=== PATIENT | female | born 1980 | race Caucasian/White ===

== ENCOUNTER 2019-07-09 12:55 | Emergency (ER) | payer MEDICAID ==
[~2019-07-09] VITALS: Ht 162.6 cm; Wt 84.4 kg
[2019-07-09 13:55] VITALS: BP 121/72
== END 2019-07-09 21:26 | disposition left against medical advice (07) ==
LOC: ER 12:55
DX: R11.2 Nausea with vomiting, unspecified (principal); R51 Headache; M79.89 Other specified soft tissue disorders; Z53.21 Procedure and treatment not carried out due to patient leaving prior to being seen by health care provider